=== PATIENT | male | born 1970 | race Caucasian/White ===

== ENCOUNTER 2023-06-05 15:31 | Emergency (ER) | payer BC ==
[~2023-06-05] VITALS: Ht 180.3 cm; Wt 122.0 kg
[2023-06-05 15:45] VITALS: BP 136/87
[2023-06-05] MEDS ORDERED: FLOXIN OTIC0.3 % OT (15:55)
[2023-06-05] MEDS ORDERED: AMOX/K CLAV875 M1 PO (15:55)
[2023-06-05] MEDS ORDERED: BACTRIM DS1 TAB PO (15:55)
[2023-06-05 16:01] VITALS: BP 122/81
== END 2023-06-05 16:08 | disposition home or self-care (01) | DRG 156 ==
LOC: ED 15:31
DX: H60.92 Unspecified otitis externa, left ear (principal); H60.12 Cellulitis of left external ear; F17.290 Nicotine dependence, other tobacco product, uncomplicated; F17.220 Nicotine dependence, chewing tobacco, uncomplicated